=== PATIENT | female | born 2000 | race Two or more races ===

== ENCOUNTER 2023-10-04 11:27 | Emergency (ER) | payer MEDICAID, OTHER ==
[~2023-10-04] VITALS: Ht 149.9 cm; Wt 40.9 kg
[2023-10-04 11:40] VITALS: BP 119/67; PULSE 74; RESP 18; TEMP 97.7
[2023-10-04] MEDS: ACETAMINOPHEN 325 MG TABLET PO ONE (12:31)
[2023-10-04 12:48] LABS: COVID AG,FIA SOURCE NASAL SWAB
[2023-10-04 13:09] LABS: RAPID GROUP A STREP NEGATIVE (NEGATIVE)
[2023-10-04 13:11] LABS: SARS-COV2 (COVID) ANTIGEN,FIA Negative (Negative)
[2023-10-04] MEDS ORDERED: ACET-2247 PO (13:11)
[2023-10-04 13:12] LABS: INFLUENZA TYPE A NEGATIVE FOR TYPE A (NEGATIVE); INFLUENZA TYPE B NEGATIVE FOR TYPE B (NEGATIVE)
== END 2023-10-04 13:32 | disposition home or self-care (01) ==
LOC: EMS 11:27
DX: M54.12 Radiculopathy, cervical region (principal); R05.9 Cough, unspecified; J02.9 Acute pharyngitis, unspecified; Z20.822 Contact with and (suspected) exposure to COVID-19
CPT/HCPCS: 71045; 87430; 87804; 99284

== ENCOUNTER 2023-12-05 18:48 | Emergency (ER) | payer OTHER ==
[~2023-12-05] VITALS: Ht 139.7 cm; Wt 37.0 kg
[~2023-12-05 18:48] MED LIST: ACET-2247 PO
[2023-12-05 18:55] VITALS: TEMP 99
[2023-12-05] MEDS ORDERED: ACETAMINOPHEN 325 MG TABLET ONE (19:41)
[2023-12-05] MEDS: ACETAMINOPHEN 325 MG TABLET PO ONE (19:44)
[2023-12-05 21:00] VITALS: BP 112/65; PULSE 69; RESP 12; O2SAT 100
== END 2023-12-05 21:24 | disposition home or self-care (01) ==
LOC: EMS 18:54
DX: S06.0XAA Concussion with loss of consciousness status unknown, initial encounter (principal); W22.8XXA Striking against or struck by other objects, initial encounter; Y93.89 Activity, other specified; Y92.89 Other specified places as the place of occurrence of the external cause; Y99.8 Other external cause status
CPT/HCPCS: 72040; 99283

== ENCOUNTER → 2023-12-11 | Emergency (ER) | payer OTHER ==
[~2023-12-11] VITALS: Ht 121.9 cm; Wt 37.7 kg
[2023-12-11 22:11] VITALS: BP 103/76; PULSE 74; RESP 18; TEMP 98.6; O2SAT 100
[2023-12-11] MEDS: IBUPROFEN 600 MG TABLET PO ONE (23:20)
[2023-12-11] MEDS: ACETAMINOPHEN/CODEINE 300-30 MG TABLET PO ONE (23:21)
== END | disposition still patient (30) ==
LOC: EMS 22:02
DX: S00.03XA Contusion of scalp, initial encounter (principal); X58.XXXA Exposure to other specified factors, initial encounter; Y93.89 Activity, other specified; Y92.89 Other specified places as the place of occurrence of the external cause; Y99.8 Other external cause status
CPT/HCPCS: 70450; 99284

== ENCOUNTER 2024-09-16 07:16 | Emergency (ER) | payer OTHER ==
[~2024-09-16] VITALS: Ht 144.8 cm; Wt 45.5 kg
[2024-09-16 07:24] VITALS: TEMP 98.1
[2024-09-16] MEDS ORDERED: SODIUM CHLORIDE 0.9% 100 ML ONE (08:07)
[2024-09-16] MEDS: SODIUM CHLORIDE 0.9% 1,000 ML IV ONE (08:07)
[2024-09-16] MEDS: ACETAMINOPHEN 325 MG TABLET PO ONE (08:07)
[2024-09-16] MEDS ORDERED: IOHEXOL 350 MG/ML 100 ML VIAL ONE (08:07)
[2024-09-16 08:09] LABS: PLATELET COUNT (AUTO) 227 K/uL (150-450); RED BLOOD CELL COUNT(AUTO) 4.58 MIL/uL (4.00-5.20); RED CELL DISTRIBUTION WIDTH 13.8 % (11.5-14.5); WHITE BLOOD COUNT (AUTO) 5.7 K/uL (4.5-11.0)
[2024-09-16 08:18] LABS: CALCIUM, TOTAL 8.6 mg/dL (8.8-10.5); CREATININE 0.59 mg/dL (0.60-1.30); GLOMERULAR FILTR. RATE CALC > 60 mL/min (>60); GLUCOSE,RANDOM 83 mg/dL (70-110); SODIUM SERUM 138 mmol/L (136-145); UREA NITROGEN, BLOOD 12 mg/dL (7-18)
[2024-09-16 08:30] LABS: ASPARTATE AMINOTRANSFERASE 21 U/L (15-37); HCG,QUANTITATIVE < 1 mIU/mL (0-6); TOTAL PROTEIN, SERUM 7.1 g/dL (6.4-8.2)
[2024-09-16 09:19] LABS: APPEARANCE,URINE CLEAR (CLEAR); GLUCOSE, URINE (UA) NEGATIVE (NEGATIVE); LEUKOCYTE ESTERASE ,URINE NEGATIVE (NEGATIVE); NITRATE,URINE NEGATIVE (NEGATIVE); OCCULT BLOOD,URINE NEGATIVE (NEGATIVE); SPECIFIC GRAVITIY, URINE 1.020 (1.003-1.030)
[2024-09-16 09:30] VITALS: BP 115/72; PULSE 69; RESP 18; O2SAT 99
== END 2024-09-16 09:54 | disposition home or self-care (01) ==
LOC: EMS 07:16
DX: N83.291 Other ovarian cyst, right side (principal); N89.8 Other specified noninflammatory disorders of vagina; R10.11 Right upper quadrant pain
CPT/HCPCS: 99285; 74177; 96360; 80048; 80076; 81003; 83690; 84702; 85025; 36415; Q9967; J7030; J7050